=== PATIENT | female | born 1985 | race Caucasian/White ===

== ENCOUNTER 2019-03-13 11:37 | Emergency (ER) | payer OTHER, BC ==
[~2019-03-13] VITALS: Ht 165.1 cm; Wt 112.0 kg
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
[2019-03-13 12:37] LABS: BILIRUBIN,URINE NEG (NEG); CLARITY,URINE CLEAR; COLOR,URINE YELLOW; GLUCOSE,URINE NEG (NEG); UROBILINOGEN,URINE 0.2 mg/dL (0.2 mg/dL)
[2019-03-13 12:38] LABS: NITRITE,URINE NEG (NEG)
[2019-03-13] MEDS ORDERED: ORPH-16 PO (12:57)
[2019-03-13] MEDS ORDERED: MELO7.5T29 PO (12:57)
[2019-03-13] MEDS: KETOROLAC 30 MG/ML VIAL. IM ONE (13:30)
[2019-03-13 14:05] VITALS: BP 146/82
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
== END 2019-03-13 14:35 | disposition home or self-care (01) ==
LOC: ER 11:40
DX: S70.02XA Contusion of left hip, initial encounter (principal); S09.8XXA Other specified injuries of head, initial encounter; V59.59XA Passenger in pick-up truck or van injured in collision with other motor vehicles in traffic accident, initial encounter; Y93.89 Activity, other specified; Y92.488 Other paved roadways as the place of occurrence of the external cause; Y99.8 Other external cause status
CPT/HCPCS: 70450; 72125; 73502; 81003; 81025; 96372; 99284; J1885